=== PATIENT | female | born 1940 | race Caucasian/White ===

== ENCOUNTER 2016-06-12 17:09 | Inpatient (IN) | payer MEDICARE, BC ==
--- NOTE | ~2016-06-12 | CR84 ---
[facility] A Service of [facility] & [facility] RADIOLOGY TEXT RESULTS PATIENT: AMARJIT VALENTINO LOCATION: [facility] [id number] : 39 UNIT #: [id number] AGE: [address]: Brigido Freitas MD SEX: F ORDER DR: [id number] [facility] [address]. [place], [place] [address] [id number] I MR#: [id number] Acc #: [id number] NAME: AMARJIT VALENTINO : 1940 SEX: F STUDY DATE/TIME: 06/12/2016 17:28 UNIT: [facility] ROOM: [facility] STUDY DESCRIPTION: CR ERCP Biliary and Pancr SI Attending Physician: Daxa Crowe M.D. Referring Physician: Daxa Crowe M.D. Ordering Physician: Eddy Beavers M.D. Primary Care Physician: Kamilah Blanco M.D. MEDICAL IMAGING REPORT This report is preliminary unless electronic signature is present EXAM ERCP Biliary and Pancr SI INDICATIONS Elevated liver function test. Common bile duct stone. FINDINGS 6 images from an ERCP were submitted from view. The common duct was cannulated and injected. The common duct is dilated. Multiple stones are identified in the duct. A sphincterotomy was performed. The common bile duct was swept with the balloon catheter. A stent was placed in the common bile duct. Fluoroscopic time 2 minutes 10 seconds. Dictated by... Iker Katz M.D. THIS IS AN ELECTRONICALLY VERIFIED REPORT Iker Katz M.D. at 06/14/2016 10:22 AM WARNER/chris TD: 06/13/2016 22:00 JOB #: [id number] MEDICAL IMAGING REPORT Page 1 of 1 COPY
--- NOTE | ~2016-06-12 | HP ---
Unit #: [id number] #: [id number] Patient: AMARJIT VALENTINO [id number] [facility]. [place], [place] [address] [id number] O MR#: [id number] NAME: AMARJIT VALENTINO ROOM: Age: 75 Sex: F Admission Date: 06/12/2016 : 1940 Attending Physician: Daxa Crowe M.D. Referring Physician: Daxa Crowe M.D. Primary Care Physician: Kamilah Blanco M.D. HISTORY AND PHYSICAL CHIEF COMPLAINT Jaundice, elevated liver enzymes, and abdominal pain. DISCUSSION This is a 75-year-old female with a past medical history of acid reflux, hiatal hernia, and anxiety; otherwise she is healthy. She said she had been having, for past two weeks, some abdominal discomfort. She went to see her primary doctor. She was found to have, on workup, abnormal labs and, eventually, she was sent to the emergency room to [facility] and over there she was found to have abnormal LFT and her alkaline phosphatase 264, AST 212, and ALT 313. She had a CT scan, which shows common duct measures 8 mm, suspicious for bile duct stone, common bile duct stone. Then, she, eventually, was directly came to the OR and Dr. Beavers accepted her and she underwent a ERCP and she underwent stone extraction of common bile duct, stent placement and she, eventually, postoperatively going to be directly admitted to the floor under service of JACINDA for possible lap. cholecystectomy. Though her CT scan shows previous cholecystectomy, but we did talk to the patient and she said she never had surgery for the gallbladder. Otherwise, she is feeling right now comfortable. She denies any complaint. No chest pain. No nausea. No vomiting. No fever. No chills. No cough. PAST MEDICAL HISTORY 1. History of acid reflux. 2. History of hiatal hernia. 3. History of anxiety. PAST SURGICAL HISTORY She had a cataract eye surgery, otherwise not any past surgical history. SOCIAL HISTORY She does not smoke. She does not drink alcohol. No illicit drug use. MEDICATIONS FROM HOME 1. Nexium 40 mg daily. 2. Lorazepam 0.5 mg in the morning. REVIEW OF SYSTEMS All review of systems negative, except history of present illness. PHYSICAL EXAMINATION GENERAL APPEARANCE: Middle-aged female lying in the bed comfortably. Currently not in any distress. She is alert, awake, and oriented x3. Unit #: [id number] #: [id number] Patient: AMARJIT VALENTINO VITAL SIGNS: Current vitals are following: Temperature 97.5, heart rate 83, blood pressure 154/84, and respiratory rate is 14. HEENT: Icteric sclerae. Pupils equal and reactive to light and accommodation. Extraocular muscles intact. NECK: Supple. No JVD. HEART: S1 and S2 regular rate and rhythm. LUNGS: Clear to auscultation bilaterally. No rhonchi. No wheezing. ABDOMEN: Soft, nontender, and nondistended. Bowel sounds positive. EXTREMITIES: Inspection normal. No cyanosis, no clubbing, and no edema. NEUROLOGICAL: No focal neurologic deficit. DIAGNOSTIC STUDIES LABORATORY: Workup is from the [facility] is following: Sodium 139, potassium 4, chloride 104, glucose 130, bilirubin total 2.7, alkaline phos. 564, AST 212, and ALT 313. White count 6.8, hemoglobin 14, and hematocrit 41. IMAGING: CT abdomen shows no acute findings, previous cholecystectomy, common duct within normal limits, and large hiatal hernia. ASSESSMENT AND PLAN 1. Abnormal LFTs, status post ERCP, and found to have common bile duct stone, which was extracted, and stent was placed. She is going to be admitted to surgery to evaluate for laparoscopic cholecystectomy though CT scan shows previous cholecystectomy, but she declined cholecystectomy. 2. History of GERD and hiatal hernia. 3. Anxiety. 4. DVT prophylaxis. Will place the patient on SCDs. Dictated by Thais Thornton TD: 06/13/2016 05:21 JOB #: [id number] HISTORY AND PHYSICAL Page 1 of 1 X X HISTORY AND PHYSICAL
--- NOTE | ~2016-06-12 | OR ---
Unit #: [id number] #: [id number] Patient: AMARJIT VALENTINO [id number] [address] [address] [id number] I MR#: [id number] NAME: AAMRJIT VALENTINO ROOM: [facility] Date of Procedure: 06/12/2016 Admission Date: 06/12/2016 Surgeon: Eddy Beavers M.D. : 1940 Attending Physician: Brigido Freitas M.D. Referring Physician: Daxa Crowe M.D. Primary Care Physician: Kamilah Blanco M.D. OPERATIVE REPORT PRIMARY CARE PHYSICIAN Kamilah Blanco M.D. PREOPERATIVE DIAGNOSES The patient has been transferred from [facility] Emergency Room because of upper abdominal discomfort and elevated liver function tests. She apparently was called at home by her primary care doctor after reviewing her labs, which showed a dramatic worsening in her liver function studies, especially alkaline phosphatase. Imaging studies did not show gallbladder. The patient has never had any cholecystectomy. The common bile duct, however, was reported to be "normal" in radiological studies. PROCEDURES PERFORMED 1. Endoscopic retrograde cholangiopancreatography and stone extraction. 2. Endoscopic retrograde cholangiopancreatography and biliary stent placement. POSTOPERATIVE DIAGNOSES 1. A preliminary upper GI endoscopy was performed and was normal. 2. The patient had a periampullary diverticulum. 3. The common bile duct was dilated to about 9 to 10 mm with a filling defect in the distal common bile duct, which was a pigmented stone. After sphincterotomy and balloon sweep, the stone was extracted and a 10-Lithuanian 7 cm biliary stent was placed with establishment of excellent biliary drainage. The cystic duct could not be opacified on occlusion cholangiogram. RECOMMENDATIONS The patient needs laparoscopic cholecystectomy and a surgical consult is being obtained. We will also repeat her liver function studies and pancreatic enzymes in the morning labs. SEDATION USED MAC. DESCRIPTION OF PROCEDURE Following detailed explanation of potential risks and complications of an ERCP, namely perforation, bleeding, and complications related to sedation, the patient was brought to GI lab and laid in the left semiprone position. Sedation using MAC was given. Lateral-viewing duodenoscope, initially a Unit #: [id number] #: [id number] Patient: CHELSY,AMARJIT preliminary upper GI endoscopy was performed, which was normal. The lateral viewing duodenoscope was then advanced through the oral cavity into the esophagus and then into the stomach. Pylorus was intubated in the usual fashion. The scope was advanced in deep descending duodenum. Upon shortening the scope, major papilla and ampullary area was visualized en face. The patient was noted to have a periampullary diverticulum with some food residue in it. Using guidewire based cannulation, the common bile duct was cannulated easily and contrast cholangiogram was obtained. The latter showed presence of filling defect in the distal common bile duct and a common bile duct itself was about 9 to 10 mm dilated. About 1 cm sphincterotomy was then performed. Minimal bleeding was noted after the sphincterotomy. Using a 9 to 12 mm retrieval balloon, the duct was swept 3 to 4 times and a single large pigmented stone was delivered in the duodenum. The occlusion cholangiogram also did not show presence of cystic duct, which is probably blocked. A 10-Lithuanian 7 cm biliary stent was then deployed. Both before as well as after the examination, discussion with the patient and family revealed the patient has had no prior abdominal surgeries including gallbladder surgery and the lack of visualization of gallbladder on the imaging studies is a reflection of the nonfunctioning gallbladder on HIDA scan or some imaging related issues. The patient is being kept n.p.o. after midnight for a possible laparoscopic cholecystectomy tomorrow. A Surgical consult has been obtained therefore. The above findings were communicated with Dr. Tasha Whitehead and Dr. Art Martel after completion of procedure. Dictated by... Thais Roberson/christiaon TD: 06/13/2016 08:13 JOB #: [id number] OPERATIVE REPORT Page 1 of 1 X Eddy Beavers MD X PROCEDURE OPERATIVE NOTE
--- NOTE | ~2016-06-12 | DS ---
Unit #: [id number] #: [id number] Patient: AMARJIT VALENTINO [id number] [address] [id number] I MR#: [id number] NAME: AMARJIT VALENTINO ROOM: [facility] Age: 75 Sex: F Admission Date: 06/12/2016 : 1940 Discharge Date: 06/13/2016 Attending Physician: Brigido Freitas M.D. Referring Physician: Daxa Crowe M.D. Primary Care Physician: Kamilah Blanco M.D. DISCHARGE SUMMARY FINAL DIAGNOSES 1. Some choledocholithiasis. 2. Elevated liver function tests. 3. Coloenteric fistula. SECONDARY DIAGNOSES 1. Gastroesophageal reflux disease. 2. Hiatal hernia. 3. Anxiety. PROCEDURE ERCP with stone extraction and stent placement. HOSPITAL COURSE The patient presented with some clinical jaundice, abdominal pain, and abnormal LFTs. She was seen and evaluated and ended up having endoscopy with common bile duct stone removed. A stent was placed. She was evaluated and suitable and stable for discharge, and the plan is to discharge her home with outpatient followup in two weeks. Patient was seen by Dr. Beavers prior to discharge. DISCHARGE MEDICATIONS 1. Hydrocodone 7.5/325 at 1 tablet p.o. q.4 hours p.r.n. 2. Ativan 0.5 mg p.o. daily. 3. Nexium 15 mg p.o. daily. DISPOSITION Discharged in stable condition. FOLLOWUP With primary care physician in the next three to five days. Dictated by... Thais Shen/wanda TD: 06/14/2016 14:06 JOB #: [id number] Unit #: [id number] #: [id number] Patient: AMARJIT VALENTINO DISCHARGE SUMMARY Page 1 of 1 X Brigido Freitas MD X DISCHARGE SUMMARY
--- NOTE | ~2016-06-12 | OR ---
Unit #: [id number] #: [id number] Patient: AMARJIT VALENTINO [id number] [facility]. [place], [place] [address] [id number] Jammie MR#: [id number] NAME: AMARJIT VALENTINO ROOM: [facility] Date of Procedure: 06/13/2016 Admission Date: 06/12/2016 Surgeon: Prince Montilla M.D. : 1940 Attending Physician: Brigido Freitas M.D. Referring Physician: Daxa Crowe M.D. Primary Care Physician: Kamilah Blanco M.D. OPERATIVE REPORT PREOPERATIVE DIAGNOSIS Cholelithiasis. 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 PROCEDURE PERFORMED Diagnostic laparoscopy. ANESTHESIA General endotracheal anesthesia. ESTIMATED BLOOD LOSS Minimal. INDICATIONS FOR PROCEDURE The patient is a 75-year-old lady who presented with jaundice. She underwent ERCP and was found to have choledocholithiasis. A stent was placed. Previous radiographic workup showed a CT scan with absence of the gallbladder. Ultrasound showed a contracted atrophic gallbladder with gallstones. DESCRIPTION OF PROCEDURE The patient was taken to the operating theater and placed in a supine position. General anesthesia was induced. Her abdomen was prepped and draped. A 5-mm Optiview trocar was placed in the right upper quadrant without difficulty. The abdomen was insufflated to 15 mmHg with CO2. Under direct vision, I placed a subxiphoid 10 mm, right lower 5 mm, umbilical 5 mm. General inspection of the abdomen revealed scarring at the gallbladder bed. I did not identify the gallbladder. There appeared to be the stomach or more likely the duodenum was plastered to the gallbladder bed. I did begin to take down some of the adhesions, although I felt I was risking creating an enterotomy due to the adherence of the small bowel. I did not see any evidence of inflammation. I thus elected to abort the procedure due to her advanced age and the fact that this could be a very challenging operation to identify an atrophic gallbladder, which was likely asymptomatic. Thus, we aborted the procedure, removed the ports and closed with 4-0 Vicryl. The patient tolerated the procedure well and sent to the recovery room in good condition. Dictated by... Unit #: [id number] #: [id number] Patient: CHELSY,AMARJITThais Castle/christiano TD: 06/14/2016 02:33 JOB #: [id number] OPERATIVE REPORT Page 1 of 1 X Prince Montilla MD PROCEDURE OPERATIVE NOTE
--- NOTE | ~2016-06-12 | CO ---
Unit #: [id number] #: [id number] Patient: AMARJIT VALENTINO [id number] [facility]. [place], [place] [address] [id number] Jammie MR#: [id number] NAME: AMARJIT VALENTINO ROOM: [facility] Age: 75 Sex: F Admission Date: 06/12/2016 : 1940 Attending Physician: Brigido Freitas M.D. Primary Care Physician: Kamilah Blanco M.D. Consultation Date: 06/13/2016 CONSULTATION REPORT BRIEF HISTORY The patient is a 75-year-old lady who presents with elevated bilirubin from [facility]. She was admitted to the hospital, started on IV hydration, underwent ERCP with sphincterotomy and stent placement. She was found to have a common bile duct stone. I am asked to evaluate her for possible cholecystectomy. PAST MEDICAL HISTORY She has a history of cataracts. She had no abdominal operations. MEDICATIONS See medication reconciliation sheet. SOCIAL HISTORY No smoking. No alcohol. FAMILY HISTORY Negative for GI malignancy. REVIEW OF SYSTEMS No cardiopulmonary complaints at this time. Else, 10 systems reviewed and negative. PHYSICAL EXAMINATION GENERAL: She is awake, alert, and appropriate. HEENT: Unremarkable. NECK: Supple. No JVD. Trachea midline. LUNGS: Clear to auscultation. Bilateral breath sounds symmetric. CARDIOVASCULAR: Regular rate and rhythm. ABDOMEN: Soft, nontender, nondistended. I palpate no masses. No hepatosplenomegaly. EXTREMITIES: No clubbing, cyanosis, or edema. DIAGNOSTIC STUDIES LABORATORY RESULTS: Show normal bilirubin this morning down from 2.7 on admission. Mild elevations of LFTs. White count is normal. IMAGING STUDIES: A previous CT scan from [place] shows an absence of the gallbladder, although she has had no previous operations. Ultrasound reported showed multiple stones with a contracted atrophic gallbladder. ASSESSMENT Unit #: [id number] #: [id number] Patient: AMARJIT VALENTINO 1. Choledocholithiasis, now resolved. 2. Cholelithiasis versus congenital absence of gallbladder. PLAN Somewhat of a confusing picture based upon the radiographic evidence. I discussed this with the patient in detail. We would recommend diagnostic laparoscopy and possible laparoscopic cholecystectomy. I discussed risks and benefits in detail. We will proceed. Dictated by... Thais Christian TD: 06/15/2016 02:53 JOB #: [id number] CONSULTATION REPORT Page 1 of 1 X Prince Montilla MD CONSULTATION REPORT
--- NOTE | ~2016-06-12 | CO ---
Unit #: [id number] #: [id number] Patient: AMARJIT BOWMAN [id number] [facility]. [place], [place] [address] [id number] I MR#: [id number] NAME: AMARJIT BOWMAN ROOM: [facility] Age: 75 Sex: F Admission Date: 06/12/2016 : 1940 Attending Physician: Brigido Freitas M.D. Primary Care Physician: Kamilah Blanco M.D. Consultation Date: 06/12/2016 CONSULTATION REPORT PRIMARY CARE PHYSICIAN Kamilah Blanco M.D. REASON FOR CONSULTATION Possible common bile duct stones and the patient with history of biliary pain. HISTORY OF PRESENT ILLNESS Ms. Bowman is a very pleasant 75-year-old white female. The patient got a telephonic call from her family doctor to report to the ER because of a dramatic increase in her liver function studies over a week. She has been having mild upper abdominal discomfort off and on according to her son and cavavyph-in-dgr who came along with her from the [facility] ER. The patient generally avoid seeing doctors in hospitals and is not very keen on visiting her family doctor unless she is forced to. She is physically very independent, drives, and looks far younger than her stated age. Apparently, she has been having off and on upper abdominal discomfort and pain for the past year. The symptoms are intermittent, come and go and at times last for an hour or two or a day. This time, however, when she was seen by her family doctor and labs were drawn, her alkaline phosphatase was found to be in the range of about 500 along with elevated ALT and AST and bilirubin. The patient herself seems to downplay every symptom and says she is feeling fine. PAST MEDICAL HISTORY Significant for gastroesophageal reflux and anxiety, and she has had no prior abdominal surgeries. SOCIAL HISTORY She does not smoke or drink alcohol. Lives at home by herself. FAMILY HISTORY There is no family history of colon, pancreatic cancer, or liver disease. REVIEW OF SYSTEMS Detailed review of organ systems does not reveal any recent weight loss. No history of fever, chills, or rigors. No history of headache, seizures, or syncope. She does have history of lower sternal pain off and on along with upper abdominal pain. There is no history of overt GI bleed in the form of hematemesis, melena, or hematochezia. No history of dysuria, hematuria, or pyuria. No history of focal seizures or extremity weakness. No history of skin rash, aphthous ulcer in mouth, or reactive arthritis. Unit #: [id number] #: [id number] Patient: AMARJIT BOWMAN PHYSICAL EXAMINATION GENERAL: She is alert and oriented, comfortable, and cheerful. She appears well nourished and weighs 57 kg or 158 pounds. VITAL SIGNS: Stable with a temperature of 97.4, pulse is 71 per minute and regular, respiratory rate is 18, blood pressure is 142/81. HEENT: She has no pallor, icterus, lymphadenopathy, or peripheral edema. CARDIOVASCULAR: Normal heart sounds. No murmurs on auscultation. LUNGS: Reveal normal breath sounds. Good air entry. ABDOMEN: Soft and nontender. Liver and spleen are not palpable. Bowel sounds are normal. No tenderness is elicited on deep palpation of the abdomen. Hernia sites are also normal. DIAGNOSTIC STUDIES LABORATORY RESULTS: These were obtained from [facility] and indicate a hemoglobin of 14, white count of 6.8. Her BUN and creatinine, and electrolytes are normal. The albumin is 4.0, total bilirubin is 2.7, AST and ALT are 212 and 313 respectively, and alkaline phosphatase 564. Lipase is 18 and normal. INR is 1.0. Her blood glucose is 130. IMAGING STUDIES: The patient has also had ultrasound and CAT scan of the abdomen at [facility]. The CAT scan does not suggest presence of gallbladder. It seems like the patient had HIDA scan which showed nonfunctioning gallbladder. The ultrasound showed gallstones. CLINICAL IMPRESSION The patient with history of intermittent pains and elevated LFTs. The most likely etiology here includes common bile duct stone. The other possibility that is important in view of such high alkaline phosphatase also includes an infiltrative disorder of the liver. I had a discussion with the emergency room doctor at [facility] and the patient is being transferred for a possible endoscopic retrograde cholangiopancreatography today. The patient is therefore transferred for an endoscopic retrograde cholangiopancreatography today. It is noteworthy the patient had an ultrasound that showed gallstones. Even though the CAT scan shows absence of the gallbladder, the ultrasound did show cholelithiasis. Dictated by... Thais Roberson TD: 06/15/2016 01:52 JOB #: [id number] CONSULTATION REPORT Page 1 of 1 X Eddy Beavers MD X CONSULTATION REPORT
[2016-06-13 07:15] LABS: BASOPHIL% 0.5 % (0-2.5); EOSINOPHIL% 0.5 % (0.0-7.0); HEMOGLOBIN 13.1 gm/dL (12.0-16.0); LYMPHOCYTE# 2.1 X10e3 (1.0-3.5); LYMPHOCYTE% 24.1 % (17.0-45.0); MEAN CELL VOLUME 93.7 FL (83-96); MEAN CORPUSCULAR HEMOGLOBIN 29.9 PG (28-34); MEAN CORPUSCULAR HGB CONC 31.9 g/dL (30-36); MEAN PLATELET VOLUME 8.5 FL (6.5-11.5); MONOCYTE# 0.7 X10e3 (0-1.0); MONOCYTE% 8.1 % (3.0-12.0); NEUTROPHIL# 5.7 X10e3 (1.5-7.1); NEUTROPHIL% 66.8 % (40-75); PLATELET COUNT 217 X10e3 (140-420); RED BLOOD COUNT 4.38 X10e (3.90-5.30); RED CELL DISTRIBUTION WIDTH 13.8 % (11.0-15.5); WHITE BLOOD COUNT 8.5 X10e3 (4.0-10.5)
[2016-06-13 07:17] LABS: DIFF IND NO
[2016-06-13 07:40] LABS: ALBUMIN SERUM 3.3 g/dL (3.5-5.0); BILIRUBIN,TOTAL 1.9 mg/dL (0.2-2.0); CALCIUM SERUM 9.2 mg/dL (8.4-10.2); CREATININE SERUM 0.6 mg/dL (0.6-1.4); GLOM FILT RATE Estimated 88.5 mL/min (>60); PROTEIN TOTAL SERUM 5.9 g/dL (6.0-8.3)
[2016-06-13] MEDS ORDERED: HYDROCODON-ACE1 EAC9 PO (15:24)
[2016-08-14] MEDS ORDERED: NEXIUM PO (17:41)
[2016-08-14] MEDS ORDERED: LORAZEPAM0.5 MG PO (17:42)
== END 2016-06-13 16:37 | disposition home or self-care (01) | DRG 421 ==
LOC: COPS 17:09 → CPACUOF 19:30 → C4C 06-13 10:55
PROVIDERS: Internal Medicine Gastroenterology; Surgery
PROC: 0FC98ZZ Extirpation of Matter from Common Bile Duct, Via Natural or Artificial Opening Endoscopic (ICD-10-PCS; 2016-06-12 17:33)
PROC: 0F798DZ Dilation of Common Bile Duct with Intraluminal Device, Via Natural or Artificial Opening Endoscopic (ICD-10-PCS; 2016-06-12 17:33)
PROC: 0WJP4ZZ Inspection of Gastrointestinal Tract, Percutaneous Endoscopic Approach (ICD-10-PCS; principal; 2016-06-13 09:30)
DX: K80.50 Calculus of bile duct without cholangitis or cholecystitis without obstruction (principal); K63.2 Fistula of intestine; K21.9 Gastro-esophageal reflux disease without esophagitis; K44.9 Diaphragmatic hernia without obstruction or gangrene; F41.9 Anxiety disorder, unspecified; Z91.09 Other allergy status, other than to drugs and biological substances; Z98.49 Cataract extraction status, unspecified eye
CPT/HCPCS: 74330; 80053; 82150; 83690; 85025; C9113; J0330; J1644; J2250; J2543; J2710; J3010

== ENCOUNTER → 2016-08-14 | Day surgery (SDC) | payer MEDICARE, BC ==
[~2016-08-14] MED LIST: HYDROCODON-ACE1 EAC9 PO; LORAZEPAM0.5 MG PO; NEXIUM PO
--- NOTE | ~2016-08-14 | OR ---
Unit #: [id number] #: [id number] Patient: AMARJIT VALENTINO [id number] [place], [place] [address] [id number] O MR#: [id number] NAME: AMARJIT VALENITNO ROOM: Date of Procedure: 08/14/2016 Admission Date: 08/14/2016 Surgeon: Eddy Beavers M.D. : 1940 Attending Physician: Eddy Beavers M.D. Primary Care Physician: Kamilah Blanco M.D. OPERATIVE REPORT PREOPERATIVE DIAGNOSES The patient has indwelling biliary stent. She had common bile duct stones removed in the past. PROCEDURES PERFORMED Endoscopic retrograde cholangiopancreatography and biliary stent removal as well as endoscopic retrograde cholangiopancreatography and stone removal. POSTOPERATIVE DIAGNOSES After removal of biliary stent, contrast cholangiogram showed some filling defects in the common bile duct, which was dilated to about 9 mm. The duct was then swept with retrieval balloon multiple times, any debris was then delivered into the duodenum. Excellent drainage was established. The patient also had a periampullary diverticulum. RECOMMENDATIONS The patient should not have any further problems in the future and will be followed up in the office on an as needed basis. She was discharged after reassurance. SEDATION USED MAC. DESCRIPTION OF PROCEDURE Following detailed explanation of the potential risks and complications of an ERCP, namely perforation, bleeding, complication related to sedation, and pancreatitis, the patient was brought to GI lab and laid in the left semiprone position. Sedation using MAC was given. Lateral-viewing duodenoscope was advanced through the oral cavity into the esophagus and advanced into stomach. Pylorus was intubated in the usual fashion. The scope was advanced in deep descending duodenum. Upon shortening the scope, major papilla and ampullary area was visualized en face. A periampullary diverticulum and indwelling biliary stent was noted. The biliary stent was then removed using a polypectomy snare and delivered outside. Through the previous sphincterotomy site, a guidewire was then placed through the sphincterotomy site and advanced in the common bile duct. Contrast cholangiogram showed multiple filling defects and the duct was dilated to about 9 mm. The common bile duct was then swept with a 9 to 12 mm retrieval balloon multiple times and any residual stones and debris were delivered into the duodenum. Excellent biliary drainage was Unit #: [id number] #: [id number] Patient: CHELSYAMARJIT established and normal occlusion cholangiogram was demonstrated. The scope and the accessories were then withdrawn. The patient returned to the recovery area. She tolerated the procedure without any postprocedure complications. Dictated by... Thais Roberson TD: 08/14/2016 18:10 JOB #: [id number] OPERATIVE REPORT Page 1 of 1 X Eddy Beavers MD X PROCEDURE OPERATIVE NOTE
--- NOTE | ~2016-08-14 | CR84 ---
[facility] A Service of [facility] & [facility] RADIOLOGY TEXT RESULTS PATIENT: AMARJIT VALENTINO LOCATION: [facility] : 38 UNIT #: [id number] AGE: [address]: Eddy Beavers MD SEX: F ORDER DR: [id number] [facility] [address] [place], [place] [address] [id number] O MR#: [id number] Acc #: [id number] NAME: AMARJIT VALENTINO : 1940 SEX: F STUDY DATE/TIME: 08/14/2016 16:22 UNIT: [facility] ROOM: STUDY DESCRIPTION: CR ERCP Biliary and Pancr SI Attending Physician: Eddy Beavers M.D. Ordering Physician: Eddy Beavers M.D. Primary Care Physician: Kamilah Blanco M.D. MEDICAL IMAGING REPORT This report is preliminary unless electronic signature is present EXAM Fluoroscopy during ERCP, 08/14/2016. HISTORY 75-year-old female with a history of bile duct stones and prior sphincterotomy. FINDINGS Fluoroscopy was provided by x-ray technologist during ERCP procedure performed on 08/14/2016. Fluoroscopy time 3 minutes. 2 fluoroscopic images were recorded during the procedure and are provided for review without procedure notes. The images show only the lower extrahepatic bile duct. No obvious bile duct stone is visible. Please see operative note for details. Dictated by... Archie Walters M.D. THIS IS AN ELECTRONICALLY VERIFIED REPORT Archie Walters M.D. at 08/15/2016 9:54 PM PRADEEPW/michelle TD: 08/15/2016 14:45 JOB #: [id number] MEDICAL IMAGING REPORT Page 1 of 1 COPY
== END | disposition home or self-care (01) ==
LOC: COPS 14:08
DX: Z46.59 Encounter for fitting and adjustment of other gastrointestinal appliance and device (principal); K21.9 Gastro-esophageal reflux disease without esophagitis; Z87.19 Personal history of other diseases of the digestive system; Z88.2 Allergy status to sulfonamides; Z88.5 Allergy status to narcotic agent; Z98.41 Cataract extraction status, right eye; Z98.42 Cataract extraction status, left eye; Z79.899 Other long term (current) drug therapy
CPT/HCPCS: 74330; J2250; J2805